=== PATIENT | male | born 1955 | race Caucasian/White ===

== ENCOUNTER 2019-08-09 14:45 | Inpatient (IN) | payer OTHER ==
[~2019-08-09] VITALS: Ht 165.1 cm; Wt 62.6 kg
--- NOTE | 2019-08-09 14:45 | NUR ---
pt bib private ambulance from [facility], covid + for further evaluation. pt directly to room 3 following hospital covid-19 precautions. pt deneis any pain, sob, n/ at this time. vss. pt with left side weakness due to stroke.
[2019-08-09] MEDS ORDERED: ACETAMINOPHEN ES 500 MG TABLET PO ONE (15:00)
[2019-08-09] MEDS ORDERED: ACETAMINOPHEN ES 500 MG TABLET ONE (15:10)
[2019-08-09 15:17] LABS: BASOPHILS % (AUTO) 0.8 % (0.0-2.0); EOSINOPHILS % (AUTO) 0.6 % (0.0-7.0); HEMOGLOBIN 10.5 g/dL (12.5-16.3); LYMPHOCYTES # (AUTO) 2.1 K/uL (20.0-40.0); LYMPHOCYTES % (AUTO) 52.1 % (20.5-51.5); MEAN CORPUSCULAR HEMOGLOBIN 23.7 uug (23.8-33.4); MEAN CORPUSCULAR HGB CONC 32 g/dL (32.5-36.3); MEAN CORPUSCULAR VOLUME 74.5 fL (73.0-96.2); MONOCYTES # (AUTO) 0.2 K/uL (2.0-10.0); MONOCYTES % (AUTO) 4.6 % (0.0-11.0); NEUTROPHILS # (AUTO) 1.7 K/uL (1.8-8.9); NEUTROPHILS % (AUTO) 41.9 % (38.5-71.5); PLATELET COUNT (AUTO) 224 K/uL (152-348); RED BLOOD CELL COUNT(AUTO) 4.43 MIL/uL (4.06-5.63); WHITE BLOOD COUNT (AUTO) 4.1 K/uL (3.6-10.2)
[2019-08-09 15:18] LABS: CREATININE 1.1 mg/dL (0.6-1.3); POTASSIUM 3.2 mmol/L (3.5-5.1)
[2019-08-09 15:30] LABS: BILIRUBIN,TOTAL 0.2 mg/dL (0.2-1.0); TOTAL PROTEIN, SERUM 6.9 g/dL (6.4-8.2)
[2019-08-09] MEDS ORDERED: AZITHROMYCIN IV 500 MG in IV DEXTROSE 5% 250 ML IV STA (15:43)
[2019-08-09] MEDS ORDERED: CEFTRIAXONE 1 G in IV DEXTROSE 5% 50 ML IV STA (15:43)
[2019-08-09] MEDS ORDERED: CIME400T PO (15:50)
[2019-08-09] MEDS ORDERED: AMLO5TAB4 PO (15:50)
[2019-08-09] MEDS ORDERED: ACET-2154 PO (15:50)
[2019-08-09] MEDS ORDERED: ASCO500C16 PO (15:50)
[2019-08-09] MEDS ORDERED: GLYB5TAB7 PO (15:50)
[2019-08-09] MEDS ORDERED: FURO40TA5 PO (15:50)
[2019-08-09] MEDS ORDERED: FERR325T27 PO (15:50)
[2019-08-09] MEDS ORDERED: SENN-18 PO (15:50)
[2019-08-09] MEDS ORDERED: MAGN400O6 PO (15:50)
[2019-08-09] MEDS ORDERED: ACET-73 PO (15:50)
[2019-08-09] MEDS ORDERED: ISOSORBIDE DINITRATE PO (15:50)
[2019-08-09] MEDS ORDERED: CRAN450C PO (15:50)
[2019-08-09] MEDS ORDERED: PRO HEAL PO (15:50)
[2019-08-09] MEDS ORDERED: MULT1TAB73 PO (15:50)
[2019-08-09] MEDS ORDERED: TAMS-3 PO (15:50)
[2019-08-09] MEDS ORDERED: BISA-79 PO ×2 (15:50)
[2019-08-09] MEDS ORDERED: CALC-555 PO (15:50)
[2019-08-09] MEDS ORDERED: METF-440 PO (15:50)
[2019-08-09] MEDS ORDERED: NA P133E RC (15:50)
[2019-08-09] MEDS ORDERED: OMEP20CA15 PO (15:50)
[2019-08-09] MEDS ORDERED: ZINC1CAP2 PO (15:50)
[2019-08-09] MEDS ORDERED: ATOR20TA PO (15:50)
[2019-08-09] MEDS ORDERED: UTI HEAL PO (15:50)
[2019-08-09] MEDS ORDERED: NITR0.4T48 SL (15:50)
[2019-08-09] MEDS ORDERED: ASPI-605 PO (15:50)
[2019-08-09] MEDS ORDERED: AZITHROMYCIN 500MG/ D5W 250ML IVPB **ER PYXIS ONLY IV ONE (16:14)
[2019-08-09] MEDS ORDERED: CEFTRIAXONE /D5W 50ML IVPB **ER PYXIS IV ONE (16:15)
[2019-08-09 16:30] LABS: ABG BASE EXCESS 0.1 mmol/L; ABG HCO3 24.1 mmol/L; ABG PCO2 36.5 mmHg (35.0-45.0); ABG PH 7.437 (7.350-7.450); ABG PO2 64.9 mmHg (75.0-100.0); ABG SITE RIGHT RADIAL; ABG TOTAL HEMOGLOBIN 11.1 G/dL (13.5-18.0); COHb 1.1 % (0.5-1.5); MetHb 0.3 % (0.0-1.5); O2Hb 91.5 % (94.0-97.0); VENT MODE room air
--- NOTE | 2019-08-09 16:41 | NUR ---
pt ra sat 94%, placed on o2 via nc 2 litre per md order improved to 99%
[2019-08-09 17:00] LABS: *BILIRUBIN,URIN NEGATIVE (NEGATIVE); *BLOOD, URINE NEGATIVE (NEGATIVE); *COLOR,URINE YELLOW (YELLOW); *KETONES,URINE NEGATIVE (NEGATIVE); *UROBILINOGEN,URINE 0.2 E.U./dl (NORMAL); LEUKOCYTE ESTERASE ,URINE 1+ (NEGATIVE); NITRITE, URINE POSITIVE (NEGATIVE); UGLUCOSE NEGATIVE (NEGATIVE)
[2019-08-09 17:05] LABS: *CLARITY,URINE HAZY (CLEAR)
[2019-08-09 17:06] LABS: BACTERIA,URINE MANY /HPF (NONE SEEN); SQUAMOUS EPITHELIAL CELL,UR FEW /HPF (NONE SEEN)
--- NOTE | 2019-08-09 18:13 | NUR ---
[facility]AG[facility] ([facility])
--- NOTE | 2019-08-09 18:19 | NUR ---
[facility] CALLED BACK ON THE PHONE WITH GRACIA
--- NOTE | 2019-08-09 20:10 | NUR ---
3rd called placed to [facility] to admit patient . Waiting on Dr Cowart to call back.
--- NOTE | 2019-08-09 21:07 | NUR ---
Called floor to give report, RN states already received report from previous shift.
--- NOTE | 2019-08-09 21:30 | NUR ---
patient received from ER. IV in tact on right FA and hand. refuses skin check. no s/s of acute distress and no SOB. on 2L NC. will continue admissions process and continue care.
[2019-08-09 21:58] VITALS: BP 110/72
--- NOTE | 2019-08-09 22:47 | NUR ---
patient refusing skin check.
[2019-08-09] MEDS ORDERED: FLEET ENEMA 133 ML BOTTLE RC PRN (23:15)
[2019-08-09] MEDS ORDERED: NITROGLYCERIN 0.4 MG/TAB BOTTLE SL PRN (23:15)
[2019-08-09] MEDS ORDERED: MAGNESIUM HYDROXIDE 30 ML LIQUID UDC PO PRN (23:15)
[2019-08-10 00:26] VITALS: BP 105/76
--- NOTE | 2019-08-10 05:32 | NUR ---
a/o x1. no s/s of acute distress. v/s stable. no SOB. NC 2L. NSR on tele monitor. fall precautions in place. will continue plan of care and endorse care to morning shift.
[2019-08-10 06:03] VITALS: BP 114/72
[2019-08-10] MEDS: glyBURIDE 5 MG TABLET PO SCH ×2 (06:34→16:47)
[2019-08-10] MEDS: FAMOTIDINE 20 MG TABLET PO SCH (08:17)
[2019-08-10] MEDS: BISACODYL 5 MG TABLET.DR PO SCH (08:17)
[2019-08-10] MEDS: ZINC SULFATE 220 MG CAPSULE PO SCH ×2 (08:17→16:47)
[2019-08-10] MEDS: ASPIRIN EC 81 MG TABLET.DR PO SCH (08:17)
[2019-08-10] MEDS: METFORMIN HCL 500 MG TABLET PO SCH ×2 (08:17→16:47)
[2019-08-10] MEDS ORDERED: TAMSULOSIN HCL 0.4 MG CAP.SR.24H PO SCH (09:00)
[2019-08-10 11:30] VITALS: BP 112/75
[2019-08-10 16:00] VITALS: BP 121/72
--- NOTE | 2019-08-10 18:29 | NUR ---
Patient in no acute distress or pain. Stable on room air, oxygen saturation above 92%. VSS. Afebrile this shift. 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 Left hip dressing in place, brody under dressing and wound intact. Skin precautions maintained throughout shift. Droplet/contact ISO for covid. Will endorse care to oncoming shift.
[2019-08-10] MEDS: TAMSULOSIN HCL 0.4 MG CAP.SR.24H PO SCH (20:53)
[2019-08-10] MEDS: ATORVASTATIN 20 MG TABLET PO SCH (20:53)
[2019-08-10] MEDS: AMLODIPINE 5 MG TABLET PO SCH (20:55)
[2019-08-10] MEDS: SENNOSIDES 1 TABLET PO SCH (20:55)
[2019-08-10] MEDS: CEFEPIME HCL 1 G in IV DEXTROSE 5% 50 ML IV SCH (21:16)
[2019-08-10 21:57] VITALS: BP 124/74
[2019-08-10] MEDS ORDERED: CEFEPIME HCL 1 G in IV DEXTROSE 5% 50 ML IV SCH (22:00)
[2019-08-11 01:35] VITALS: BP 116/76
[2019-08-11 04:40] VITALS: BP 107/71
--- NOTE | 2019-08-11 06:38 | NUR ---
Patient slept well. No SOB noted. SB and SR on Tele monitor. Remains afebrile. All needs attended. Will endorse accordingly
[2019-08-11 06:52] LABS: BASOPHILS % (AUTO) 0.9 % (0.0-2.0); EOSINOPHILS % (AUTO) 0.7 % (0.0-7.0); HEMOGLOBIN 10.4 g/dL (12.5-16.3); LYMPHOCYTES # (AUTO) 1.9 K/uL (20.0-40.0); LYMPHOCYTES % (AUTO) 60.6 % (20.5-51.5); MEAN CORPUSCULAR HEMOGLOBIN 23.5 uug (23.8-33.4); MEAN CORPUSCULAR HGB CONC 32 g/dL (32.5-36.3); MEAN CORPUSCULAR VOLUME 74.8 fL (73.0-96.2); MONOCYTES # (AUTO) 0.2 K/uL (2.0-10.0); MONOCYTES % (AUTO) 5.4 % (0.0-11.0); NEUTROPHILS % (AUTO) 32.4 % (38.5-71.5); PLATELET COUNT (AUTO) 177 K/uL (152-348); RED BLOOD CELL COUNT(AUTO) 4.41 MIL/uL (4.06-5.63); WHITE BLOOD COUNT (AUTO) 3.1 K/uL (3.6-10.2)
[2019-08-11 07:07] LABS: BILIRUBIN,TOTAL 0.3 mg/dL (0.2-1.0); CREATININE 0.8 mg/dL (0.6-1.3); MAGNESIUM 1.8 mg/dL (1.8-2.4); PHOSPHOROUS 3.3 mg/dL (2.5-4.9); POTASSIUM 3.2 mmol/L (3.5-5.1); TOTAL PROTEIN, SERUM 6.7 g/dL (6.4-8.2)
[2019-08-11 08:22] LABS: EOSINOPHILS % (MANUAL) 1 % (0-8)
[2019-08-11 08:25] LABS: LYMPHOCYTES % (MANUAL) 59 % (20-40); MONOCYTES % (MANUAL) 7 % (2-10); NEUTROPHILS % (MANUAL) 32 % (42-75)
[2019-08-11 08:26] LABS: BASOPHILS % (MANUAL) 1 % (0-2)
[2019-08-11] MEDS: ASPIRIN EC 81 MG TABLET.DR PO SCH (09:12)
[2019-08-11] MEDS: METFORMIN HCL 500 MG TABLET PO SCH ×2 (09:13→16:51)
[2019-08-11] MEDS: BISACODYL 5 MG TABLET.DR PO SCH (09:13)
[2019-08-11] MEDS: FAMOTIDINE 20 MG TABLET PO SCH (09:14)
[2019-08-11] MEDS: ZINC SULFATE 220 MG CAPSULE PO SCH ×2 (09:14→16:51)
[2019-08-11] MEDS: glyBURIDE 5 MG TABLET PO SCH ×2 (09:14→16:51)
[2019-08-11] MEDS ORDERED: POTASSIUM CHLORIDE 20 MEQ TAB.PRT.SR PO ONE (10:45)
[2019-08-11 11:37] VITALS: BP 125/79
[2019-08-11 15:05] VITALS: BP 137/86
[2019-08-11] MEDS ORDERED: FLEET ENEMA 133 ML BOTTLE RC PRN (19:12)
[2019-08-11] MEDS: SENNOSIDES 1 TABLET PO SCH (21:00)
[2019-08-11] MEDS: ATORVASTATIN 20 MG TABLET PO SCH (21:41)
[2019-08-11] MEDS: CEFEPIME HCL 1 G in IV DEXTROSE 5% 50 ML IV SCH (21:41)
[2019-08-11] MEDS: TAMSULOSIN HCL 0.4 MG CAP.SR.24H PO SCH (21:42)
[2019-08-11] MEDS: AMLODIPINE 5 MG TABLET PO SCH (21:42)
[2019-08-11 22:00] VITALS: BP 123/82
[2019-08-12] MEDS: MEROPENEM 0.5 G in IV NORMAL SALINE 50 ML IV SCH (00:34)
[2019-08-12 04:35] VITALS: BP 123/81
[2019-08-12 06:44] LABS: BASOPHILS % (AUTO) 0.7 % (0.0-2.0); EOSINOPHILS % (AUTO) 0.6 % (0.0-7.0); HEMATOCRIT 33.2 % (36.7-47.1); HEMOGLOBIN 10.5 g/dL (12.5-16.3); LYMPHOCYTES % (AUTO) 58.9 % (20.5-51.5); MEAN CORPUSCULAR HEMOGLOBIN 23.3 uug (23.8-33.4); MEAN CORPUSCULAR HGB CONC 32 g/dL (32.5-36.3); MONOCYTES # (AUTO) 0.2 K/uL (2.0-10.0); MONOCYTES % (AUTO) 5.4 % (0.0-11.0); NEUTROPHILS # (AUTO) 1.2 K/uL (1.8-8.9); NEUTROPHILS % (AUTO) 34.4 % (38.5-71.5); PLATELET COUNT (AUTO) 172 K/uL (152-348); RED BLOOD CELL COUNT(AUTO) 4.48 MIL/uL (4.06-5.63); WHITE BLOOD COUNT (AUTO) 3.4 K/uL (3.6-10.2)
[2019-08-12 06:48] LABS: CREATININE 0.7 mg/dL (0.6-1.3); MAGNESIUM 1.7 mg/dL (1.8-2.4); PHOSPHOROUS 3.4 mg/dL (2.5-4.9); POTASSIUM 3.6 mmol/L (3.5-5.1)
[2019-08-12] MEDS: ZINC SULFATE 220 MG CAPSULE PO SCH ×2 (09:00→17:35)
[2019-08-12] MEDS: BISACODYL 5 MG TABLET.DR PO SCH (09:00)
[2019-08-12] MEDS: ASPIRIN EC 81 MG TABLET.DR PO SCH (09:00)
[2019-08-12] MEDS: METFORMIN HCL 500 MG TABLET PO SCH ×2 (09:00→17:36)
[2019-08-12] MEDS: glyBURIDE 5 MG TABLET PO SCH ×2 (09:00→17:36)
[2019-08-12] MEDS: FAMOTIDINE 20 MG TABLET PO SCH (09:00)
[2019-08-12 09:26] VITALS: BP 123/87
[2019-08-12] MEDS ORDERED: POTASSIUM CHLORIDE 20 MEQ TAB.PRT.SR PO ONE ×2 (11:15→17:00)
[2019-08-12 13:12] VITALS: BP 130/88
[2019-08-12] MEDS ORDERED: MAGNESIUM OXIDE 400 MG TABLET PO ONE (17:00)
[2019-08-12 17:06] VITALS: BP 128/89
--- NOTE | 2019-08-12 18:53 | NUR ---
Pt received this morning, assessed, no acute distress, denies pain, and no SOB noted. Compliant with routine medication administration. Pt clean and dry. All needs promptly attended to this shift. Phone provided to contact family. Urine culture results shower E. Coli and significant resistance to many antibiotics. MD made aware. ID consult needed to follow up with plan of care. Air mattress applied. Call light within reach. Bed in locked and lowest position with side rails up. Will continue to monitor and endorse.
[2019-08-12 20:00] VITALS: BP 129/87
[2019-08-12] MEDS: ATORVASTATIN 20 MG TABLET PO SCH (21:41)
[2019-08-12] MEDS: SENNOSIDES 1 TABLET PO SCH (21:41)
[2019-08-12] MEDS: TAMSULOSIN HCL 0.4 MG CAP.SR.24H PO SCH (21:41)
[2019-08-12] MEDS: AMLODIPINE 5 MG TABLET PO SCH (21:44)
[2019-08-12] MEDS ORDERED: MEROPENEM 0.5 G in IV NORMAL SALINE 50 ML IV SCH (22:00)
[2019-08-13] MEDS ORDERED: MEROPENEM 500MG/NS 50ML PB ***ER PYXIS ONLY IV ONE (00:25)
--- NOTE | 2019-08-13 00:34 | NUR ---
merrem administered late due to isolation precautions and understaffed tonight. medications not available and faxed at [phone] received at [phone].
[2019-08-13 04:51] VITALS: BP 119/85
[2019-08-13] MEDS: MEROPENEM 0.5 G in IV NORMAL SALINE 50 ML IV SCH (05:33)
--- NOTE | 2019-08-13 05:34 | NUR ---
merrem not administered this morning due to inhouse pharmacy requirement to change time on . contacted [facility], outside night pharmacy regarding changing time. informed that inhouse pharmacy will correct this in the morning. -please see previous nursing notes for late administration reason.
[2019-08-13 08:24] VITALS: BP 123/82
[2019-08-13] MEDS ORDERED: MEROPENEM 0.5 G in IV NORMAL SALINE 50 ML IV ONE (09:00)
[2019-08-13] MEDS: METFORMIN HCL 500 MG TABLET PO SCH ×2 (09:29→17:48)
[2019-08-13] MEDS: FAMOTIDINE 20 MG TABLET PO SCH (09:29)
[2019-08-13] MEDS: ASPIRIN EC 81 MG TABLET.DR PO SCH (09:29)
[2019-08-13] MEDS: ZINC SULFATE 220 MG CAPSULE PO SCH ×2 (09:29→17:48)
[2019-08-13] MEDS: glyBURIDE 5 MG TABLET PO SCH ×2 (09:29→17:00)
[2019-08-13] MEDS: BISACODYL 5 MG TABLET.DR PO SCH (09:29)
[2019-08-13 16:00] VITALS: BP 126/62
[2019-08-13] MEDS: MEROPENEM 1 G in IV NORMAL SALINE 100 ML IV SCH (17:49)
--- NOTE | 2019-08-13 19:45 | NUR ---
Received patient awake. Patient shows no signs or symptoms of distress at this time. Vital signs stable. No fever at this time. Bed set to lowest position. Call light within reach. Will continue to monitor patient.
[2019-08-13 20:37] VITALS: BP 132/93
[2019-08-13] MEDS: SENNOSIDES 1 TABLET PO SCH (21:47)
[2019-08-13] MEDS: AMLODIPINE 5 MG TABLET PO SCH (21:47)
[2019-08-13] MEDS: TAMSULOSIN HCL 0.4 MG CAP.SR.24H PO SCH (21:47)
[2019-08-13] MEDS: ATORVASTATIN 20 MG TABLET PO SCH (21:47)
[2019-08-14] MEDS: MEROPENEM 1 G in IV NORMAL SALINE 100 ML IV SCH ×3 (00:28→18:17)
[2019-08-14 05:17] VITALS: BP 123/79
--- NOTE | 2019-08-14 07:02 | NUR ---
Patient shows no signs or symptoms of distress at this time. Vital signs stable. Afebrile throughout the night. Patient will be endorsed to day shift nurse in stable condition.
--- NOTE | 2019-08-14 08:31 | NUR ---
PATIENT HAS BREAKFAST AT BEDSIDE BUT STATES HE IS NOT HUNGRY.
[2019-08-14] MEDS: glyBURIDE 5 MG TABLET PO SCH ×2 (10:09→17:21)
[2019-08-14] MEDS: FAMOTIDINE 20 MG TABLET PO SCH (10:09)
[2019-08-14] MEDS: ZINC SULFATE 220 MG CAPSULE PO SCH ×2 (10:09→17:21)
[2019-08-14] MEDS: METFORMIN HCL 500 MG TABLET PO SCH ×2 (10:09→17:21)
[2019-08-14] MEDS: ASPIRIN EC 81 MG TABLET.DR PO SCH (10:09)
[2019-08-14] MEDS: BISACODYL 5 MG TABLET.DR PO SCH (10:09)
[2019-08-14 11:00] VITALS: BP 119/80
[2019-08-14 16:00] VITALS: BP 118/88
[2019-08-14] MEDS ORDERED: FLEET ENEMA 133 ML BOTTLE RC PRN (16:09)
--- NOTE | 2019-08-14 20:00 | NUR ---
Received patient awake and alert. Patient shows no signs or symptoms of distress at this time. Vital signs are stable and is afebrile. Bed set to lowest position. Call light within reach. Will continue to monitor patient.
[2019-08-14 20:05] VITALS: BP 156/81
[2019-08-14] MEDS: ATORVASTATIN 20 MG TABLET PO SCH (21:31)
[2019-08-14] MEDS: TAMSULOSIN HCL 0.4 MG CAP.SR.24H PO SCH (21:31)
[2019-08-14] MEDS: AMLODIPINE 5 MG TABLET PO SCH (21:31)
[2019-08-14] MEDS: SENNOSIDES 1 TABLET PO SCH (21:31)
[2019-08-15] MEDS: MEROPENEM 1 G in IV NORMAL SALINE 100 ML IV SCH ×2 (01:01→09:43)
[2019-08-15 06:53] VITALS: BP 140/75
--- NOTE | 2019-08-15 06:55 | NUR ---
Patient shows no signs or symptoms of distress at this time. Vital signs stable and patient has been afebrile all night. Will endorse patient to day shift nurse in stable condition.
--- NOTE | 2019-08-15 09:30 | NUR ---
Pt is being discharged by Dr Cowart back to [facility]. Condition is stable.
[2019-08-15] MEDS: BISACODYL 5 MG TABLET.DR PO SCH (09:44)
[2019-08-15] MEDS: FAMOTIDINE 20 MG TABLET PO SCH (09:44)
[2019-08-15] MEDS: METFORMIN HCL 500 MG TABLET PO SCH ×2 (09:44→18:10)
[2019-08-15] MEDS: glyBURIDE 5 MG TABLET PO SCH ×2 (09:44→18:10)
[2019-08-15] MEDS: ASPIRIN EC 81 MG TABLET.DR PO SCH (09:44)
[2019-08-15] MEDS: ZINC SULFATE 220 MG CAPSULE PO SCH ×2 (09:44→18:10)
[2019-08-15] MEDS ORDERED: NITR100C6 PO (10:41)
--- NOTE | 2019-08-15 11:30 | NUR ---
Report called in to [facility] at the [facility]. Arranged for transport but has difficulty arranging secondary to his insurance.
--- NOTE | 2019-08-15 11:46 | NUR ---
WOUND CARE CONSULT: REVIEWED NURSING DOCUMENTATION, CHART AND PHOTOS. PER NURSING, THERE IS A CLOSED INCISION TO LEFT HIP WITH NOELLE, PRESENT ON ADMISSION. PT TO BE DISCHARGED BACK TO FACILITY TODAY. RECOMMEND ORTHO FOLLOW UP. RECOMMENDATIONS MADE FOR SKIN PROTECTION. DISCUSSED WITH NURSING STAFF. MD IN AGREEMENT WITH PLAN OF CARE.
[2019-08-15 12:00] VITALS: BP 116/86
[2019-08-15 16:00] VITALS: BP 108/75
--- NOTE | 2019-08-15 18:30 | NUR ---
Still awaiting for the transport. Condition is stable.
--- NOTE | 2019-08-15 19:45 | NUR ---
Report given to ambulance [facility]. Pt is discharged, condition is stable.
== END 2019-08-15 20:00 | DRG 137 ==
LOC: ER 14:45 → TELE3 21:11 → MEDSURG3 08-11 15:35 → MED 08-11 18:24
PROVIDERS: ADMIT Internal Medicine Nephrology; ATTEND Internal Medicine
DX: U07.1 COVID-19 (principal); I11.0 Hypertensive heart disease with heart failure; N39.0 Urinary tract infection, site not specified; E87.1 Hypo-osmolality and hyponatremia; I50.32 Chronic diastolic (congestive) heart failure; J12.89 Other viral pneumonia; E44.1 Mild protein-calorie malnutrition; B96.20 Unspecified Escherichia coli [E. coli] as the cause of diseases classified elsewhere; E11.9 Type 2 diabetes mellitus without complications; Z16.12 Extended spectrum beta lactamase (ESBL) resistance; E78.5 Hyperlipidemia, unspecified; E87.6 Hypokalemia; K21.9 Gastro-esophageal reflux disease without esophagitis; N40.0 Benign prostatic hyperplasia without lower urinary tract symptoms; Z79.82 Long term (current) use of aspirin; Z85.038 Personal history of other malignant neoplasm of large intestine; I69.354 Hemiplegia and hemiparesis following cerebral infarction affecting left non-dominant side; Z96.642 Presence of left artificial hip joint; Z68.23 Body mass index [BMI] 23.0-23.9, adult
CPT/HCPCS: 36415; 36600; 70030-TC; 71045; 83605; 83615; 83735; 84100; 85025; 85730; 86140; 87040; 87077; 87086; 93005; A4663; A9150; G0378; J0456; J0692; J0696; J2185; J3490; J7050; J7060